=== PATIENT | male | born 1995 | race Caucasian/White ===

== ENCOUNTER 2017-06-03 12:59 | Emergency (ER) | payer BC, OTHER ==
[~2017-06-03] VITALS: Ht 182.9 cm; Wt 68.0 kg
[2017-06-03 17:15] VITALS: BP 119/78
== END 2017-06-03 17:15 | disposition home or self-care (01) ==
LOC: ER 12:59
DX: S43.014A Anterior dislocation of right humerus, initial encounter (principal); W10.9XXA Fall (on) (from) unspecified stairs and steps, initial encounter; Y93.89 Activity, other specified; Y92.89 Other specified places as the place of occurrence of the external cause; Y99.8 Other external cause status